=== PATIENT | male | born 1960 | race Caucasian/White ===

== ENCOUNTER 2017-11-02 12:03 | Outpatient (CLI) | payer MEDICARE, MEDICAID | END 2017-11-02 12:04 | disposition home or self-care (01) | LOC: BICMRI 12:03 | PROVIDERS: ATTEND Family Medicine | DX: M47.26 Other spondylosis with radiculopathy, lumbar region (principal); M51.16 Intervertebral disc disorders with radiculopathy, lumbar region; M48.061 Spinal stenosis, lumbar region without neurogenic claudication; N28.1 Cyst of kidney, acquired | CPT/HCPCS: 72158 ==

== ENCOUNTER 2018-05-22 23:43 | Observation (INO) | payer MEDICARE, MEDICAID ==
[2018-05-23] MEDS ORDERED: Fentanyl 100 MCG/2 ML VIAL ONE (00:13)
[2018-05-23 01:01] LABS: Troponin I Less than 0.010 ng/mL (< 0.028)
[2018-05-23] MEDS ORDERED: Ondansetron ODT 4 MG TAB ONE (01:05)
[2018-05-23] MEDS ORDERED: Promethazine HCl 25 MG/ML VIAL ONE (01:36)
[2018-05-23 02:34] VITALS: BMI 27.6
[2018-05-23 03:26] LABS: Cardiac Risk 2.4 (Less than 4.5)
[2018-05-23 03:29] LABS: Troponin I Less than 0.010 ng/mL (< 0.028)
[2018-05-23] MEDS ORDERED: Acetaminophen 325 MG TAB PO PRN (03:49)
[2018-05-23] MEDS ORDERED: Nitroglycerin 2% Ointment 1 INCH/1 GM Packet TOP SCH (06:00)
[2018-05-23] MEDS ORDERED: Ondansetron HCl/PF 4 MG/2 ML Vial IVP SCH (07:45)
[2018-05-23] MEDS ORDERED: Ondansetron ODT 4 MG TAB PO SCH (07:45)
[2018-05-23] MEDS ORDERED: Nitroglycerin 0.4 MG TAB (25 Tab Bottle) PO PRN (08:42)
[2018-05-23] MEDS ORDERED: Milk Of Magnesia 30 ML UDCUP PO PRN (08:42)
[2018-05-23] MEDS ORDERED: Senokot 8.6 MG TAB PO PRN (08:42)
[2018-05-23] MEDS ORDERED: Mag-Al 1200 mg/1200 mg/30 ML UDCUP PO PRN (08:42)
[2018-05-23] MEDS ORDERED: Loperamide HCl 2 MG CAP PO PRN (08:42)
[2018-05-23] MEDS ORDERED: Zolpidem Tartrate 5 MG TAB PO PRN (08:42)
[2018-05-23] MEDS ORDERED: Folic Acid 1 MG TAB PO SCH (09:00)
[2018-05-23] MEDS ORDERED: Multivitamin W/ Minerals 1 TAB PO SCH (09:00)
[2018-05-23] MEDS ORDERED: carBAMazepine 200 MG TAB PO SCH (09:00)
[2018-05-23] MEDS ORDERED: Lisinopril 20 MG TAB PO SCH (09:00)
[2018-05-23] MEDS ORDERED: Famotidine 20 MG TAB PO SCH (09:00)
[2018-05-23] MEDS ORDERED: Aspirin 325 MG TAB PO SCH ×2 (09:00)
[2018-05-23] MEDS: Gabapentin 300 MG CAP PO SCH ×2 (09:10→14:09)
[2018-05-23] MEDS: Diazepam 5 MG TAB PO SCH ×2 (09:10→14:09)
--- NOTE | 2018-05-23 11:24 | SS ---
PRIMARY CARE PHYSICIAN: Dr. Dino Jimenez. REASON FOR ADMISSION: Transfer from [facility] for chest pain. HISTORY OF PRESENT ILLNESS: A 57-year-old male who has history of epilepsy, who went to [facility] with the complaint of chest pain. Chest pain started yesterday around 4:00 p.m. which was left-sided in location, slight radiation to left shoulder, associated with nausea, diaphoresis, shortness of breath, and vomiting. He was feeling hot. His intensity of pain Initially 9/10 and subsequently reduced to 6/10. There was no specific aggravating or relieving factor. When he went to local [facility] , he had electrocardiogram which was unremarkable. They did routine blood tests including D-dimer, which were negative. Subsequently, this patient was sent to our Emergency Room. At [facility], the patient was given IV fluid, nitropatch, Zofran, nitroglycerin sublingual, and aspirin 324 mg. When I saw this patient in our hospital after emergency room transfer, he was not having any chest pain. His chest pain was completely subsided. He denies any UTI symptoms. He denies any headache. He denies any constipation, diarrhea , melena, hematochezia. As he has not had any breakfast, he was feeling nausea and that is why Zofran was given. He denies any focal motor symptoms. PAST MEDICAL HISTORY: Epilepsy/seizure disorder, chronic low back pain, hypertension. PAST SURGICAL HISTORY: Broken jaw as a child, cholecystectomy, hemorrhoid surgery, back surgery. PAST PSYCHIATRIC HISTORY: Anxiety and depression. SOCIAL HISTORY: The patient is a former smoker. He quit smoking about 6 years ago. He drinks 4-5 beer on a daily basis. He denies any other illicit drug abuse. He lives in [place] with his friend. FAMILY HISTORY: No strong family history of coronary artery disease or cancer, but father had a stroke. ALLERGIES: TYLENOL gives hives and nausea. CURRENT HOME MEDICATIONS: Tegretol 400 mg p.o. b.i.d., diazepam 5 mg p.o. t.i.d., folic acid 1 mg p.o. daily, gabapentin 300 mg t.i.d., lisinopril 20 mg p.o. daily, multivitamin 1 tablet p.o. daily. EMERGENCY ROOM COURSE: The patient was given IV fluid, nitroglycerin patch, nitroglycerin sublingual, Zofran 4 mg. Patient was given Phenergan, Zofran and fentanyl 100 mcg and IV fluid in our emergency room. REVIEW OF SYSTEMS: The following complete review of systems was negative, unless otherwise mentioned in the HPI or below: Constitutional: Weight loss or gain, ability to conduct usual activities. Skin: Rash, itching. Eyes: Double vision, pain. ENT/Mouth: Nose bleeding, neck stiffness, pain, tenderness. Cardiovascular: Palpitations, dyspnea on exertion, orthopnea. Respiratory: Shortness of breath, wheezing, cough, hemoptysis, fever or night sweats. Gastrointestinal: Poor appetite, abdominal pain, heartburn, nausea, vomiting, constipation, or diarrhea. Genitourinary: Urgency, frequency, dysuria, nocturia. Musculoskeletal: Pain, swelling. Neurologic/Psychiatric: Anxiety, depression. Allergy/Immunologic: Skin rash, bleeding tendency. Please see my HPI for pertinent positive and negative. All other review of systems reviewed and negative except as mentioned in the HPI. PHYSICAL EXAMINATION: VITAL SIGNS: On arrival, blood pressure 110/63, pulse 71, respiratory rate 16, temperature 98.9, saturation 99% on room air, and weight 86.1 kilograms. GENERAL: The patient is currently alert, awake, no obvious acute distress. HEAD: Normocephalic, atraumatic. EYES: Pupils round and reactive to light. Extraocular muscle intact. Facial plethora noted. NECK: Supple, no JVD, no thyromegaly, no carotid bruit. LUNGS: Clear to auscultation without any rhonchi or rales. Air entry normal. CARDIAC: S1, S2 regular. No murmur, no gallop, no rub. ABDOMEN: Soft, bowel sounds present, nontender, nondistended. No organomegaly , no mass, no suprapubic tenderness. BACK: Unremarkable. No CVA tenderness, no point tenderness. EXTREMITIES: Upper extremity, passive movement of all joints are normal. Lower extremity, no edema. Good peripheral pulsation, no calf tenderness. SKIN: No skin rash. HEMATOLOGIC: No lymphadenopathy. PSYCHIATRIC: Normal affect. NEUROLOGIC: Nonfocal examination. No cerebellar signs. Motor and sensation within normal limits. SIGNIFICANT LABORATORY DATA: EKG showing normal sinus rhythm, nonspecific ST-T changes. CBC: WBC 4.6, hemoglobin 14.3, platelet 176. D-dimer less than 0.27. BMP: Sodium 134, potassium 3.9, chloride 101, carbon dioxide 20, anion gap 17, BUN 11 , creatinine 1.0, glucose 85, calcium 9.3. LFT: AST 37, ALT 54, alkaline phosphatase 81, albumin 4.4, CK 153. Cardiac enzymes negative x3. BNP less than 10. Lipase 27, LDL 107, triglyceride 213, HDL 90. Chest x-ray based on my review, no acute cardiopulmonary process. ASSESSMENT AND PLAN: 1. Chest pain. Patient's chest pain description is left-sided, slight radiation to left shoulder. He has negative EKG, negative chest x-ray and negative D-dimer. In this way, we have excluded thromboembolic disorder, pneumonia. He does not have any reproducible pain, so costochondritis less likely. He has alcohol abuse history, so I am suspecting probably related his symptoms with gastroesophageal reflux disease. He never had any workup for cardiac and that is why we have observed him on telemetry floor and we did serial cardiac enzymes and ruled out acute coronary syndrome. For benefit of doubt, we are doing stress test today and if stress test is negative, then we will consider discharging him home. We provided healthy lifestyle measure discussion. We will prescribe Pepcid upon discharge. Once stress test is negative, then we will consider discharging him home. 2. Epilepsy/seizure disorder. Continue Tegretol 400 mg p.o. b.i.d., gabapentin 300 mg p.o. t.i.d. 3. Anxiety/depression. Continue diazepam 5 mg p.o. t.i.d. 4. Hypertension. I advised the patient to monitor blood pressure at home and take only if blood pressure is above normal limit. He will resume his lisinopril 20 mg p.o. daily. 5. Alcohol abuse. He will continue folic acid, multivitamin, and I counseled to avoid alcohol abuse. He will also continue B12 1000 mcg p.o. daily. 6. Chronic low back pain. I advised him to avoid NSAIDs. Continue gabapentin as well, that will help. 7. Deep venous thrombosis prophylaxis not needed because we are expecting discharge in 24 hours. 8. Gastrointestinal prophylaxis, Pepcid 20 mg p.o. b.i.d. 9. Code status: The patient is FULL CODE. The patient is making decision by himself. Disposition plan based on stress test result, likely today. DATE OF ADMISSION: 05/23/2018 at midnight. DATE OF DISCHARGE: 05/23/2018. DISCHARGE DISPOSITION: Home. PRIMARY DISCHARGE DIAGNOSIS: Chest pain, ruled out acute coronary syndrome. SECONDARY DISCHARGE DIAGNOSIS: Chest pain, ruled out acute coronary syndrome, likely due to gastroesophageal reflux disease. SECONDARY DISCHARGE DIAGNOSES: Alcohol abuse, anxiety, and depression, hypertension, seizure disorder. PRIMARY PROCEDURES/OPERATIONS: None. RADIOLOGICAL INVESTIGATION: Stress test result is negative Chest x-ray normal. SIGNIFICANT LABORATORY DATA: Please see my laboratory finding above. DISCHARGE MEDICATIONS: Folic acid 1 mg p.o. daily, vitamin B12 1000 mcg p.o. daily, Pepcid 20 mg p.o. b.i.d., Tegretol 400 mg p.o. b.i.d., diazepam 5 mg p.o. t.i.d., gabapentin 300 mg p.o. t.i.d., multivitamin 1 tablet p.o. daily, lisinopril 20 mg p.o. daily. CONTRAINDICATIONS: None. CODE STATUS: FULL CODE. INPATIENT NURSE RECEPTIONIST: None. ALLERGIES: TYLENOL. DISCHARGE PLAN: Post hospital, the patient will follow up with primary care physician. HOSPITAL COURSE: Please see my HPI for further details. The patient was admitted for chest pain. He went to [place] and he had negative workup there. He was given IV fluid and symptomatic treatment. He had negative D-dimer. Chest x-ray was normal. Cardiac enzymes are negative and EKG was normal. He underwent stress test and stress test result is pending by the time of dictation. If stress is negative, then we will consider discharging him home today. All new medication prescription sent to his pharmacy. STRESS TEST IS NEGATIVE The patient was admitted and discharged on the same day. [facility] CENTERMark
[2018-05-23] MEDS ORDERED: ADENOSINE 60 MG/20 ML VIAL ONE (13:28)
[2018-05-23 14:10] VITALS: BP 134/70; TEMP 98.5
--- NOTE | 2018-05-23 14:44 | NM ---
NUCLEAR MEDICINE CARDIAC PERFUSION EXAMINATION WITH EJECTION FRACTION: HISTORY: A 57-year-old male with chest pain and hypertension. TECHNIQUE: A single-day nuclear medicine cardiac perfusion examination was performed. Rest images were obtained using 9.4 mCi of Technetium 99m sestamibi. Stress images were obtained using 29.7 mCi of Technetium 99m sestamibi and adenosine. FINDINGS: Tomographic images showed no fixed or reversible perfusion defects. Gated images show normal wall mo tion with an ejection fraction of greater than 70%. EDV is 107 mL. LHR is 0.4. TID is 1.1. IMPRESSION: No evidence of ischemia. POS: [place]
== END 2018-05-23 16:17 | disposition home or self-care (01) ==
LOC: ERS 23:43 → 2SW 05-23 00:10
PROVIDERS: ADMIT Hospitalist; ATTEND Hospitalist
DX: R07.9 Chest pain, unspecified (principal); I10 Essential (primary) hypertension; F41.8 Other specified anxiety disorders; F10.10 Alcohol abuse, uncomplicated; M54.5 Low back pain; G40.909 Epilepsy, unspecified, not intractable, without status epilepticus; Z88.8 Allergy status to other drugs, medicaments and biological substances; Z87.891 Personal history of nicotine dependence; Z79.899 Other long term (current) drug therapy
CPT/HCPCS: 78452; 80061; 83880; 84484 ×2; 85379; 93005; 93017; 96361 ×2; 96365; 96366; 96375; 96376; 99285; A9500; G0378; 36415; 96374; J0153; J2405; J2550; J3010; Q0162

== ENCOUNTER 2019-06-05 18:51 | Observation (INO) | payer MEDICARE, MEDICAID ==
[~2019-06-05 18:51] MED LIST: ISOVUE-370 76%-LOCM 1 ML ONE
[2019-06-05 19:32] LABS: Bilirubin Negative (Negative); Blood, Urine Negative (Negative); Clarity Clear (Clear); Glucose, Urine (Dipstick) Normal (Negative); Leukocyte Negative Leu/uL (Negative); Nitrite Negative (Negative); Protein, Urine (Dipstick) Negative (Neg-Trace); Urobilinogen Normal mg/dL (Less than 2)
[2019-06-05 19:55] LABS: #Eosinphils 0.1 thou/uL (0.0-0.7); #Lymphocytes 1.5 thou/uL (1.20-3.40); #Monocytes 0.5 thou/uL (0.11-0.59); %Basophils 0.6 % (0.0-1.0); %Eosinophils 1.7 % (0.0-10.0); %Lymphocytes 28.9 % (21.0-51.0); %Monocytes 10.1 % (0.0-10.0); %Neutrophils 58.7 % (42.0-75.0); Hemoglobin 14.3 g/dL (14.0-18.0); Mean Corpuscular HGB CONC 35.4 g/dL (32.0-36.0); Mean Corpuscular Hemoglobin 35.2 pg (27.0-31.0); Mean Corpuscular Volume 99.4 fL (78.0-98.0); Mean Platelet Volume 6.5 fL (7.4-10.4); Platelet Count 201 thou/uL (130-400); RBC Distribution Width 10.9 % (11.5-14.5); Red Blood Cell (RBC) Count 4.06 mill/uL (4.70-6.10); White Blood Cell (WBC) Count 5.1 thou/uL (4.8-10.8)
[2019-06-05 20:10] LABS: ALT (SGPT) 27 U/L (8-55); AST (SGOT) 20 U/L (5-34); Albumin 4.3 g/dL (3.5-5.0); Alkaline Phosphatase 77 U/L (40-150); Anion Gap 14 mmol/L (10-20); BUN (Urea Nitrogen) 6 mg/dL (8.4-25.7); Bilirubin, Total 0.5 mg/dL (0.2-1.2); Calc. Creatinine Clearance 0 mL/min (70-130); Carbon Dioxide 19 mmol/L (22-29); Chloride 100 mmol/L (98-107); Estimated GFR-MDRD 82; Globulin 3.3 g/dL (2.4-3.5); Glucose 92 mg/dL (70-105); Lipase 15 U/L (8-78); Magnesium 2.2 mg/dL (1.6-2.6); Potassium 3.9 mmol/L (3.5-5.1); Protein, Total 7.6 g/dL (6.0-8.3); Sodium 129 mmol/L (136-145)
--- NOTE | 2019-06-05 20:53 | CT ---
EXAM: CT ABDOMEN AND PELVIS HISTORY: Left-sided abdominal pain. Nausea and vomiting. COMPARISON: 05/20/2019 Procedure: Multiple contiguous axial images were obtained and a CT of the abdomen and pelvis with IV contrast. C oronal reformats were performed. FINDINGS: Lower Chest: Chronic changes. Vessels: Normal caliber aorta Heart: Unremarkable Abdomen: Portal vein:Patent Gallbladder: Surgically absent Liver: within normal limits. Pancreas: Stable atrophy. Spleen: within normal limits. Adrenals: within normal limits. Kidneys: Stable parenchymal, exophytic hypodense masses. Symmetric enhancement. No obstructive uropat hy. Peritoneum: No ascites or free air, no fluid collection. Bowel: Limited evaluation by the lack of oral contrast. No evidence of small bowel obstruction. Ileoc ecal junction is normal. Normal caliber appendix. Scattered fecal material in a nondistended, nondilated colon. Stable anastomosis of the level of the rectum. Mesentery and Retroperitoneum: No enlarged mesenteric or retroperitoneal lymph nodes. Abdominal Wall: within normal limits. Pelvis: Reproductive Organs: No pelvic masses. Pelvis: within normal limits. Bladder: within normal limits. Bones: within normal limits. IMPRESSION: No evidence of acute intraabdominal\pelvic abnormality.
[2019-06-05] MEDS ORDERED: Morphine 4 MG/ML VIAL ONE (21:34)
[2019-06-05] MEDS ORDERED: Lorazepam 2 MG/ML VIAL ONE (23:08)
--- NOTE | 2019-06-06 00:01 | MRI ---
MRI lumbar spine noncontrast: HISTORY: Low back pain. Eval for cauda equina syndrome. Weakness. Decreased rectal tone. Urinary retention. COMPARISON: 05/24/2013 FINDINGS: Appropriate T1 marrow signal intensity of the lumbar vertebra. Vertebral body height is maintained. N o fracture. No significant STIR hyperintensity to suggest vertebral body edema or ligamentous injury Multiple T2 hyperintensities in the left or right renal cortex compatible with cortical cysts Symmetric signal intensity of the paraspinal muscles Conus medullaris terminates at the superior aspect of L1 T12-L1:Mild to moderate loss of disc space height. Central disc protrusion with a right subarticular component. Mild central canal stenosis. Moderate right and mild left neural foraminal narrowing. L1-L2:Disc hydration. Small right subarticular disc protrusion. Mass effect without obscuration the t raversing right L2 nerve root. Moderate right and mild left neural foraminal narrowing. L2-L3:Adequate disc hydration. Generalized disc bulge with a central disc protrusion with superior di sc extrusion. Narrowing of the right subarticular zone with mass effect and obscuration the traversing right L3 nerve root. Left subarticular zone is unremarkable. Overall there is mild to mode rate central canal stenosis. Mild bilateral neural foraminal narrowing L3-L4:Desiccation with mild to moderate loss of disc space height. Generalized disc bulge without sig nificant central canal stenosis. Moderate right and left neural foraminal narrowing. L4-L5:Adequate disc hydration. There is a central/left subarticular disc protrusion. Disc material ab uts but does not obscure the traversing left L5 nerve root. Overall mild central canal stenosis. Mild to moderate bilateral neural foraminal narrowing. L5-S1:Severe loss of disc space height. No significant central canal stenosis. Mild bilateral neural foraminal narrowing. IMPRESSION: 1. Degenerative changes lumbar spine as detailed above. There is narrowing of the right subarticular zone at L1-L2, L2-L3 and narrowing of the left subarticular zone at L4-L5. 2. No evidence of high-grade central canal stenosis. Mild to moderate central canal stenosis at L2-L3 . The degree of degenerative disc disease has progressed at L1-L2 and L2-L3. Degenerative changes at L3-L4 have improved. 3. Multilevel neural foraminal narrowing as detailed above.
[2019-06-06] MEDS ORDERED: Acetaminophen 325 MG TAB PO PRN (00:03)
[2019-06-06 00:12] VITALS: BMI 28.4
[2019-06-06] MEDS: Morphine 4 MG/ML VIAL SLOW IVP PRN ×3 (07:20→16:42)
[2019-06-06] MEDS: Ondansetron ODT 8 MG TAB PO SCH ×3 (07:20→21:01)
[2019-06-06] MEDS ORDERED: Lorazepam 2 MG/ML VIAL SLOW IVP PRN (09:32)
--- NOTE | 2019-06-06 10:44 | MRI ---
MRI THORACIC SPINE WITHOUT CONTRAST: Date: 06/06/19 INDICATION: History of spinal cord compression. COMPARISON: None. FINDINGS: There is multilevel disc degenerative disease in the thoracic spine. No bone marrow signal abnormalit y is grossly evident. No acute fracture is demonstrated. Visualized aspects of the retroperitoneum de monstrate some T2 hyperintense, T1 hypointense lesion extending exophytically off the superior pole o f the left kidney measuring 1.3 cm, suspicious for a cyst. Remaining visualized paravertebral soft ti ssues appear within normal limits. At T1-T2, there is no appreciable central canal or neural foraminal narrowing. At T2-T3, there is facet hypertrophy and mild disc degenerative disease inducing mild right neural fo raminal narrowing. At T3-4, there is moderate facet joint degenerative change and a broad based disc bulge, but no appre ciable central canal or neural foraminal narrowing. At T4-5, there is no appreciable central canal or neural foraminal narrowing. At T5-6, there is no appreciable central canal or neural foraminal narrowing. At T6-7, there is no appreciable central canal or neural foraminal narrowing. At T7-T8, there is no appreciable central canal or neural foraminal narrowing. At T8-T9, there is no appreciable central canal or neural foraminal narrowing. At T9-T10, there is no appreciable central canal or neural foraminal narrowing. At T10-T11, there is no appreciable central canal or neural foraminal narrowing. At T11-T12, there is no appreciable central canal or neural foraminal narrowing. At T12-L1, there is no appreciable central canal or neural foraminal narrowing. IMPRESSION: Mild multilevel disc degenerative disease of the thoracic spine with mild right neural foraminal narr owing at T2-T3 due to facet hypertrophy and disc degenerative disease. POS: [facility]
[2019-06-06] MEDS ORDERED: Acetaminophen/Codeine 30-300mg Tablet PO PRN (12:19)
[2019-06-06] MEDS: Cyclobenzaprine 10 MG TAB PO PRN ×2 (13:13→23:08)
[2019-06-06] MEDS: Gabapentin 300 MG CAP PO SCH ×2 (15:00→21:01)
[2019-06-06] MEDS ORDERED: Famotidine/PF 20 mg/2ml Vial SLOW IVP SCH ×2 (21:00)
[2019-06-06] MEDS ORDERED: Tamsulosin HCl 0.4 MG CAP PO SCH (21:00)
[2019-06-06] MEDS: Famotidine 20 MG TAB PO SCH (21:01)
[2019-06-06] MEDS: carBAMazepine 200 MG TAB PO SCH (21:01)
--- NOTE | 2019-06-06 21:35 | HP ---
CHIEF COMPLAINT: Back pain; also nausea, vomiting, diarrhea for the past week. HISTORY OF PRESENT ILLNESS: The patient is a 58-year-old male, who presents to the hospital with complaints of multiple complaints. The patient states that he has been having nausea, vomiting, and diarrhea for the past week on and off. The patient states that he has not been able to eat anything, however, stated that he was able to keep two beers down. The patient also states that he has been having significant lower back pain and has been having numbness especially to his left lower extremity. The patient states that he normally gets pain shots from Dr. Lopez. His next shot is due on the . The patient also states that he has been having significant amount of diarrhea. However, denies any fevers or chills. The patient states that for the past couple of days, he is unable to walk due to the pain and also weakness of his left lower extremity. The patient in the ER was found to have urinary retention, at which time Pan was placed. The patient states that he is continent of his stools. However, when he has diarrhea, it is uncontrollable, but his normal stools are controllable. PAST MEDICAL HISTORY: As of the following, he has a history: 1. Epilepsy seizure. 2. Chronic lower back pain. 3. Hypertension. PAST SURGICAL HISTORY: He has had a broken jaw as a child, cholecystectomy, hemorrhoid surgery and back . SOCIAL HISTORY: He is a former smoker. He drinks about 4 or 5 beers a day. He quit about six years ago. Denies any drug use, and he lives in [place] with his friend. FAMILY HISTORY: No history of heart disease, cancer, or stroke. ALLERGIES: HE IS ALLERGIC TO TYLENOL, GIVES HIM NAUSEA AND HIVES. MEDICATIONS: He takes; 1. Tegretol 400 mg b.i.d. 2. Diazepam 5 mg p.o. t.i.d. 3. Folic acid one p.o. daily. 4. Gabapentin 300 mg t.i.d. 5. Lisinopril 20 mg daily. 6. Multivitamin one p.o. daily. 7. Thiamine 100 mg daily. REVIEW OF SYSTEMS: All negative except for the ones mentioned above in the HPI. PHYSICAL EXAMINATION: VITAL SIGNS: As of the following; temperature of 97.4, heart rate 76, respirations 20, 100% on room air, blood pressure 132/86. GENERAL: He is awake, alert, and oriented x3. Does not appear in any distress. HEENT: Normocephalic, atraumatic. No lymphadenopathy noted. Pupils are equal and reactive to light. CV: S1 and S2 present. No murmurs, rubs, or gallops. LUNGS: Clear to auscultation. No rhonchi or wheezes noted. ABDOMEN: Soft. Bowel sounds are present x2. Mild pain upon palpation around his epigastric area. EXTREMITIES: He got pedal pulses present x2. The patient is an able to move both extremities, however, does have pain on moving his left lower extremity. According to him, pain sensation is dull to the left compared to the right. NEUROLOGIC: Neurovascular [place]; he does have some weakness to the left lower extremity. SKIN: No cuts, lesions , or bruises noted. LABORATORY RESULTS: As of the following; WBCs of 5.1, hemoglobin of 14.3, hematocrit of 40.4, platelets of 201. Chemistry; sodium of 129, potassium of 3.9, BUN of 6, creatinine of 0.94. Lactic acid of 1.3. Serum osmolality is 285. Troponin x3 were negative. Lipase was 15. The patient did have a CT abdomen and pelvis, which indicated no acute intra-abdominal issues. The patient also had a lumbar cervical spine and a thoracic MRI. The thoracic MRI indicated multilevel degenerative disease and he also had a lumbar spine MRI, which did indicate [id number] central canal stenosis at L2-L3, however, no evidence of high-grade central canal stenosis. ASSESSMENT AND PLAN: The patient is a 58-year-old male, who presents to the hospital with significant amount of nausea, vomiting, diarrhea, back pain, and lower extremity pain. 1. Nausea, vomiting, diarrhea. His lipase is normal. I will check stool studies if he has any more diarrhea. The patient is a drinker. I will put him on a PPI and also put him on alcohol withdrawal precaution. His CT abdomen and pelvis did not indicate any acute abnormalities. We will continue to monitor. 2. Lower back pain and pain to his left lower extremity. He was evaluated by Neurosurgery, who did not seem that this patient require any urgent surgery. I will put the patient on a muscle relaxant and also some pain medications, and we will continue to monitor. I will also give the patient's physical therapy. 3. History of seizures. We will continue his home medications. 4. Deep venous thrombosis prophylaxis. We will put the patient on subcu heparin. Job ID: [id number]
[2019-06-06] MEDS ORDERED: Diazepam 5 MG TAB PO SCH (23:00)
[2019-06-07 05:54] LABS: Band 2 % (5-11); Lymphocytes 37 % (21-51); MDiff Complete? YES; Mean Corpuscular HGB CONC 34.8 g/dL (32.0-36.0); Mean Corpuscular Hemoglobin 35.5 pg (27.0-31.0); Mean Platelet Volume 6.5 fL (7.4-10.4); Monocytes 5 % (0-10); Neutrophil 56 % (42-75); Platelet Count 165 thou/uL (130-400); RBC Distribution Width 10.9 % (11.5-14.5); Red Blood Cell (RBC) Count 3.67 mill/uL (4.70-6.10); White Blood Cell (WBC) Count 5.2 thou/uL (4.8-10.8)
[2019-06-07 05:56] LABS: ALT (SGPT) 34 U/L (8-55); AST (SGOT) 28 U/L (5-34); Albumin 3.9 g/dL (3.5-5.0); Alkaline Phosphatase 71 U/L (40-150); Anion Gap 12 mmol/L (10-20); BUN (Urea Nitrogen) 6 mg/dL (8.4-25.7); Bilirubin, Total 0.7 mg/dL (0.2-1.2); Calc. Creatinine Clearance 85 mL/min (70-130); Calcium 9.3 mg/dL (7.8-10.44); Carbon Dioxide 24 mmol/L (22-29); Chloride 105 mmol/L (98-107); Estimated GFR-MDRD 69; Glucose 95 mg/dL (70-105); Protein, Total 6.9 g/dL (6.0-8.3); Sodium 137 mmol/L (136-145)
[2019-06-07] MEDS: Morphine 4 MG/ML VIAL SLOW IVP PRN (07:16)
[2019-06-07 07:21] VITALS: TEMP 98.8
[2019-06-07] MEDS ORDERED: Folic Acid 1 MG TAB PO SCH (09:00)
[2019-06-07] MEDS ORDERED: Lisinopril 10 MG TAB PO SCH (09:00)
[2019-06-07] MEDS ORDERED: Cyanocobalamin (Vitamin B-12) 1,000 MCG TAB PO SCH (09:00)
[2019-06-07] MEDS ORDERED: Multivitamin W/ Minerals 1 TAB PO SCH (09:00)
[2019-06-07] MEDS ORDERED: Diazepam 5 MG TAB PO SCH (09:00)
[2019-06-07] MEDS: Ondansetron ODT 8 MG TAB PO SCH (09:08)
[2019-06-07] MEDS: Famotidine 20 MG TAB PO SCH (09:09)
[2019-06-07] MEDS: carBAMazepine 200 MG TAB PO SCH (09:09)
[2019-06-07] MEDS: Gabapentin 300 MG CAP PO SCH ×2 (09:09→09:13)
--- NOTE | 2019-06-07 09:17 | CON ---
DATE OF CONSULTATION: 06/06/2019 This encounter took place on June 06, 2019 at 5:45 a.m. HISTORY OF PRESENT ILLNESS: Mr. Doe is a 58-year-old man, who was admitted overnight for a multiplicity of diagnoses most significant being intractable nausea with vomiting, abdominal pain, and then associated with this or perhaps just coincidentally associated he has significant lower back pain, which he has had for many years. Neurosurgery was consulted overnight for concerns for cauda equina syndrome. This patient developed urinary retention that was new to him today. MRI performed emergently of the lumbar spine revealed no significantly concerning pathology, most significant though with L2-3 and L3-4 where he has the most moderate central canal stenosis, but nothing that would explain cauda equina like symptoms. At bedside this morning, he is awake and alert, although extraordinarily nauseated and starts to vomit during the course of our exam, so my examination is unfortunately limited. Then most significant pain he has is in the left lower back and groin, particularly with movement of the left lower extremity. This could represent any number of concerns up to lumbar radiculopathy, but could also be psoas muscle irritation. He does have some tingling and numbness to that lower extremity. The numbness that he reports is poly-dermatomal in nature, but does go down to around the godoy and ankle. He does have good strength in that leg distally with plantar flexion and dorsiflexion. However, when he attempts to raise his leg off the bed, his pain becomes severe in nature. Reflexes are intact to the bilateral lower extremities. From Neurosurgery's perspective, there is nothing that is emergently surgical represented on the lumbar spine. Please update this note also to include review of the thoracic spine, imaging yesterday afternoon, which shows really no significant pathology of any kind. Again, there is no surgical pathology present that needs to be addressed while he is in the hospital. If his pain is intractable and unresponsive to our typical pain regimens, could certainly consult Pain Management for evaluation of possible injection in the lumbar spine. Otherwise, Neurosurgery will plan to follow up in the outpatient setting. Job ID: [id number]
[2019-06-07 11:26] VITALS: BP 146/83
--- NOTE | 2019-06-08 01:25 | DIS ---
DATE OF ADMISSION: 06/05/2019 DATE OF DISCHARGE: 06/07/2019 DISCHARGE DIAGNOSES: As of the following; 1. Nausea and vomiting. 2. Abdominal pain. 3. Lower back pain with pain radiating to his left lower leg. HOSPITAL COURSE: The patient is a 58-year-old male, who initially presented to the hospital with complaints of nausea and vomiting on and off for the past week and also lower back pain radiating down his left leg, which is also chronic. The patient normally sees Dr. Lopez and gets shots. However, he stated that his next shot is due on June 09. The patient states that he has been having significant nausea and vomiting on and off for the past week. He also has a history of alcohol abuse. He did have a CT of abdomen and pelvis, which was unremarkable. He only had exophytic masses on his kidney. Otherwise, no other abnormalities were noted and this was mentioned to the patient. The patient also had a lumbar spine and a thoracic spine MRI and was evaluated by Neurosurgery. Initially, the thoughts were possible cauda equina syndrome. However, Neurosurgery ruled that out. His lumbar MRI indicated that he does have L2-L3 [id number] central canal stenosis; however, no evidence of high-grade central canal stenosis was noted. He does have multiple neural foraminal narrowing. He also had a thoracic spine MRI which indicated multilevel disk degenerative disease of the thoracic spine and mild right neuroforaminal narrowing. The patient also had a Pan catheter which was inserted in the ER. We were able to discontinue the Pan catheter and the patient was able to urinate without any issues. I did put him on Flexeril and Tylenol No. 3. However, the patient is allergic to Tylenol. The patient also was seen by Physical Therapy. He was able to ambulate. From Neurosurgical Services, there was no acute intervention, and therefore the patient's pain improved. He was able to tolerate his food and he was discharged home. I did emphasize that the patient not to drink while he is on medications and also not to drink which could also contribute to his nausea and vomiting. The patient is on Valium 5 mg t.i.d. and he has been on it for quite a long time. I did not want to stop it and start Flexeril, instead I decreased it to 5 mg b.i.d. I did tell the patient that he needs to follow up with his primary and maybe taper the Valium down since this is not really helping him, which most likely is for muscle spasms also and the patient needs to continue maybe Flexeril. I have prescribed him some Flexeril in the meantime. PHYSICAL EXAMINATION: VITAL SIGNS: 98.8, 90, 16, 98% on room air, 159/80. GENERAL: He is awake, alert, and oriented x3. Does not appear in distress. CV: S1 and S2, present. No murmurs, rubs, or gallops. ABDOMEN: Soft and nontender. Bowel sounds are present x2. HOME MEDICATIONS: 1. Carbamazepine 400 mg b.i.d. 2. Diazepam 5 mg b.i.d. 3. Flexeril 10 mg t.i.d. p.r.n. 4. Gabapentin 300 mg t.i.d. 5. Pepcid 20 mg b.i.d. 6. Folic acid 1 mg p.o. b.i.d. 7. Lisinopril 20 mg p.o. daily. He will be discharged home. He will follow up with primary care and also [facility] as needed. Job ID: [id number]
== END 2019-06-07 13:29 | disposition home health service (06) ==
LOC: ERS 18:51 → 2SW 22:25
PROVIDERS: ADMIT Internal Medicine; ATTEND Internal Medicine
DX: M51.26 Other intervertebral disc displacement, lumbar region (principal); M48.061 Spinal stenosis, lumbar region without neurogenic claudication; M48.07 Spinal stenosis, lumbosacral region; M51.34 Other intervertebral disc degeneration, thoracic region; M48.04 Spinal stenosis, thoracic region; M48.05 Spinal stenosis, thoracolumbar region; R11.2 Nausea with vomiting, unspecified; R10.9 Unspecified abdominal pain; R19.7 Diarrhea, unspecified; G89.29 Other chronic pain; I10 Essential (primary) hypertension; G40.909 Epilepsy, unspecified, not intractable, without status epilepticus; F32.9 Major depressive disorder, single episode, unspecified; Z87.891 Personal history of nicotine dependence; Z88.6 Allergy status to analgesic agent; Z79.899 Other long term (current) drug therapy
CPT/HCPCS: 51702; 72146; 72148; 74177; 80053 ×2; 81003; 83605; 83690; 83735; 83930; 83935; 84300; 84484; 85007; 85025; 85027; 85652; 86140; 86850; 86900; 86901; 93005; 96361; 96374; 96375; 96376 ×2; 97116; 97139; 99285; G0378 ×2; 36415; J2060; J2270; Q9966

== ENCOUNTER 2019-11-11 10:45 | Inpatient (IN) | payer MEDICARE, MEDICAID ==
[2019-11-11] MEDS ORDERED: metroNIDAZOLE 500 MG/100 ML BAG ONE (11:49)
[2019-11-11] MEDS ORDERED: Cyclobenzaprine 10 MG TAB PO PRN (12:30)
[2019-11-11] MEDS ORDERED: Bisacodyl 10 MG SUPP PR PRN (12:30)
[2019-11-11] MEDS ORDERED: Senokot S 8.6-50 MG TAB PO PRN (12:30)
[2019-11-11] MEDS ORDERED: Guaifenesin DM 100-10/5 ML UDCUP PO PRN (12:30)
[2019-11-11] MEDS ORDERED: Morphine 2 MG/ML SYRINGE ONE (13:32)
[2019-11-11] MEDS ORDERED: Ondansetron PF 4 MG/2 ML Vial ONE (13:32)
[2019-11-11] MEDS: Lactated Ringer's 1,000 ML IV SCH ×2 (13:34→20:48)
[2019-11-11] MEDS: Morphine 2 MG/ML SYRINGE SLOW IVP PRN ×2 (13:35→17:45)
[2019-11-11] MEDS: Ondansetron PF 4 MG/2 ML Vial IVP PRN (13:36)
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
[2019-11-11 14:44] VITALS: BMI 28.0
[2019-11-11] MEDS: Gabapentin 300 MG CAP PO SCH (20:36)
[2019-11-11] MEDS: carBAMazepine 200 MG TAB PO SCH (20:36)
[2019-11-11] MEDS: Diazepam 5 MG TAB PO SCH (20:37)
[2019-11-11] MEDS: Famotidine 20 MG TAB PO SCH (20:37)
[2019-11-11] MEDS: metroNIDAZOLE 500 MG in Premix Bag 1 BAG IVPB SCH (21:22)
--- NOTE | 2019-11-11 23:51 | CON ---
DATE OF CONSULTATION: CHIEF COMPLAINT: Abdominal pain. HISTORY OF PRESENT ILLNESS: Mr. Doe is a 58-year-old man who presented to the emergency room with abdominal pain since yesterday. He states that the pain is in his lower abdomen has not moved since its onset. It does hurt to take a deep breath or move around. He initially thought it might be a kidney stone since he has had those in the past, but this pain was not getting any better, so he came to his local emergency room where a CT was diagnostic of diverticulitis. He has no previous history of diverticulitis and denies any history of constipation, although he does have a history of hemorrhoids. He states that he had a colonoscopy 4 or 5 years ago, which did not show any significant abnormalities. He has had nausea and vomiting yesterday when he tried to eat, but has not really eaten since then due to lack of appetite. He denies any fevers or chills. The pain has not gotten any worse, but has persisted and is about a 5-6/10 on a 0-10 scale. No exacerbating or relieving factors. He had a normal bowel movement yesterday morning. No diarrhea. No history of melena. PAST MEDICAL HISTORY: Hypertension, hyperlipidemia, and major depression. PAST SURGICAL HISTORY: Back surgeries, laparoscopic cholecystectomy, hemorrhoid surgery many years ago and epilepsy, which is well controlled. OUTPATIENT MEDICATIONS: Include: 1. Carbamazepine. 2. Lisinopril. 3. Diazepam. 4. Gabapentin. ALLERGIES: HE REPORTS AN ADVERSE DRUG REACTION TO TYLENOL, WHICH MAKES HIM SICK TO HIS STOMACH. SOCIAL HISTORY: He is a former smoker, but quit at least 8 years ago. He drinks occasionally but not to excess and does not have any history of drug abuse. FAMILY HISTORY: Heart disease. REVIEW OF SYSTEMS: Ten system review of systems is negative except per HPI. PHYSICAL EXAMINATION: VITAL SIGNS: Temperature 97.9, heart rate 91, respirations 18, 96% saturations on room air, blood pressure 110/76. GENERAL: Reveals a healthy-appearing man, in no acute distress. He is not flushed or toxic in appearance. He is not jaundiced or icteric. HEENT: Unremarkable. NECK: Supple without lymphadenopathy or thyroid nodules. HEART: Regular in its rate and rhythm without murmurs, rubs, or gallops. LUNGS: Clear to auscultation bilaterally. ABDOMEN: Soft and nondistended. He has healed laparoscopic incisions in the upper abdomen. No palpable masses or hernias. He is moderately tender to palpation in the lower abdomen, but does not exhibit rigidity rebound or guarding. He is nontender to palpation in the upper abdomen. EXTREMITIES: Warm and well perfused with normal pedal pulses. NEUROLOGIC: No focal deficits. PSYCHIATRIC: Alert, oriented and appropriate. LABORATORY DATA: White count is elevated at 13, with a left shift of 81% neutrophils. Bilirubin is slightly elevated at 1.3, but other electrolytes and LFTs are normal. Urine showed trace ketones and a small amount of protein, but was otherwise unremarkable. CT images are reviewed and I agree with the written report. The patient has a short segment of inflamed sigmoid colon with a tiny bubble of air in the mesentery. No free air or free fluid. No abscess formation. ASSESSMENT: Acute diverticulitis, admitted to the medical service for conservative management with IV antibiotics. He is on a clear liquid diet and we will monitor his response to antibiotics. No acute indication for surgical intervention. The patient's diagnosis and treatment plan were discussed in detail with him and he understands, agrees with this plan. If he has worsening of his symptoms, he was instructed to ask his nurse to call me to evaluate him. Thanks very much. Job ID: [id number]
[2019-11-12] MEDS: metroNIDAZOLE 500 MG in Premix Bag 1 BAG IVPB SCH ×3 (05:30→21:59)
[2019-11-12] MEDS: Morphine 2 MG/ML SYRINGE SLOW IVP PRN ×3 (05:41→18:45)
[2019-11-12 08:23] LABS: #Eosinphils 0.2 thou/uL (0.0-0.7); #Lymphocytes 1.5 thou/uL (1.20-3.40); #Monocytes 0.8 thou/uL (0.11-0.59); #Neutrophils 6.2 thou/uL (1.40-6.50); %Basophils 0.5 % (0.0-1.0); %Eosinophils 2.5 % (0.0-10.0); %Lymphocytes 16.8 % (21.0-51.0); %Monocytes 9.3 % (0.0-10.0); %Neutrophils 70.9 % (42.0-75.0); Hemoglobin 12.2 g/dL (14.0-18.0); Mean Corpuscular HGB CONC 35.3 g/dL (32.0-36.0); Mean Corpuscular Hemoglobin 34.1 pg (27.0-31.0); Mean Corpuscular Volume 96.6 fL (78.0-98.0); Mean Platelet Volume 7.2 fL (7.4-10.4); Platelet Count 145 thou/uL (130-400); RBC Distribution Width 10.8 % (11.5-14.5); Red Blood Cell (RBC) Count 3.57 mill/uL (4.70-6.10); White Blood Cell (WBC) Count 8.7 thou/uL (4.8-10.8)
[2019-11-12] MEDS: Enoxaparin Sodium 40 MG/0.4 ML SYRINGE SC SCH (08:23)
[2019-11-12] MEDS: Lisinopril 20 MG TAB PO SCH (08:23)
[2019-11-12] MEDS: Famotidine 20 MG TAB PO SCH ×2 (08:24→20:22)
[2019-11-12] MEDS: carBAMazepine 200 MG TAB PO SCH ×2 (08:24→20:21)
[2019-11-12] MEDS: Cyanocobalamin (Vitamin B-12) 1,000 MCG TAB PO SCH (08:25)
[2019-11-12] MEDS: Lactated Ringer's 1,000 ML IV SCH ×2 (08:25→18:11)
[2019-11-12] MEDS: Multivitamin W/ Minerals 1 TAB PO SCH (08:25)
[2019-11-12] MEDS: Diazepam 5 MG TAB PO SCH ×2 (08:25→20:33)
[2019-11-12] MEDS: Folic Acid 1 MG TAB PO SCH (08:27)
[2019-11-12 08:40] LABS: Anion Gap 10 mmol/L (10-20); BUN (Urea Nitrogen) 11 mg/dL (8.4-25.7); Calc. Creatinine Clearance 108 mL/min (70-130); Calcium 8.7 mg/dL (7.8-10.44); Carbon Dioxide 24 mmol/L (22-29); Chloride 104 mmol/L (98-107); Estimated GFR-MDRD 86; Glucose 90 mg/dL (70-105); Sodium 134 mmol/L (136-145)
[2019-11-12] MEDS ORDERED: Polyethylene Glycol 3350 17 GM Packet PO PRN ×2 (11:20→11:40)
[2019-11-12] MEDS ORDERED: Polyethylene Glycol 3350 17 GM Packet PO SCH ×2 (11:30→11:45)
[2019-11-12] MEDS: Ondansetron PF 4 MG/2 ML Vial IVP PRN (14:08)
--- NOTE | 2019-11-12 14:58 | PDOC.GSPN ---
Surgery Progress Note: Subj - Subjective Narrative: Patient's states that his pain is a little better today. He is still hurting in the lower abdomen. No nausea but little appetite. His main complaint today is feeling weak. Surgery Progress Note: Obj - Vital signs Vital signs: Vital Signs - Most Recent Temp Pulse Resp BP Pulse Ox 99.2 F 81 16 99/65 95 11/12/19 08:00 11/12/19 08:00 11/12/19 08:00 11/12/19 08:00 11/12/19 08:00 - Physical Exam General: no distress Abdomen: soft, nondistended, positive bowel sounds (bottom turning lathe tender to palpation in bilateral lower quadrants, about the same as yesterday, no rigidity rebound or guarding) Surgery Progress Note: Results - Labs Result Diagrams: 11/12/19 07:40 11/12/19 07:40 Lab results: Laboratory Results - last 24 hr 11/12/19 11/12/19 07:40 07:40 WBC 8.7 RBC 3.57 L Hgb 12.2 L Hct 34.5 L MCV 96.6 MCH 34.1 H MCHC 35.3 RDW 10.8 L Plt Count 145 MPV 7.2 L Neutrophils % 70.9 Lymphocytes % 16.8 L Monocytes % 9.3 Eosinophils % 2.5 Basophils % 0.5 Neutrophils # 6.2 Lymphocytes # 1.5 Monocytes # 0.8 H Eosinophils # 0.2 Basophils # 0.0 Sodium 134 L Potassium 4.0 Chloride 104 Carbon Dioxide 24 Anion Gap 10 BUN 11 Creatinine 0.90 Estimated GFR (MDRD) 86 Glucose 90 Calcium 8.7 Surgery Progress Note: A/P - Problem (1) Diverticulitis large intestine Current Visit: Yes Code(s): K57.32 - DVTRCLI OF LG INT W/O PERFORATION OR ABSCESS W/O BLEEDING Status: Acute Qualifiers: Diverticulitis bleeding: without bleeding Diverticulitis complication: with perforation and without abscess Qualified Code(s): K57.20 - Diverticulitis of large intestine with perforation and abscess without bleeding - Plan Plan: Patient is clinically stable with his diverticulitis on conservative medical management. Pain is slightly better and his white count has normalized. Exam is stable. He is tolerating clear liquid diet but still doesn't have much appetite. He is feeling weak which I think is from not eating for a few days. No current indication for surgery. We'll continue to follow.
[2019-11-12] MEDS: Gabapentin 300 MG CAP PO SCH (20:21)
--- NOTE | 2019-11-12 21:24 | PDOC.HOSPP ---
- Subjective Encounter Date: 11/12/19 Encounter Time: 09:22 Subjective: 58 y/o male with HTN, HLD and depression admitted with acute onset of bilateral lower abdominal pain associated with nausea. CT showed features of acute diverticulitis. Patient reported no BM in seveeral days. Abdominal pain is better. Tolerating clear liquid diet. - Objective Vital Signs & Weight: Vital Signs (12 hours) Temp Pulse Resp BP Pulse Ox 11/12/19 20:03 98.6 F 78 18 114/71 93 L Weight Weight 190 lb I&O: 11/11/19 11/12/19 11/13/19 06:59 06:59 06:59 Intake Total 1140 Balance 1140 Result Diagrams: 11/12/19 07:40 11/12/19 07:40 Hospitalist ROS - Medication Medications: Active Medications Generic Name Dose Route Start Last Admin Trade Name Freq PRN Reason Stop Dose Admin Carbamazepine 400 mg 11/11/19 21:00 11/12/19 20:21 Tegretol PO 400 mg BID AHSAN Administration Cyanocobalamin 1,000 mcg 11/12/19 09:00 11/12/19 08:25 Vitamin B-12 PO 1,000 mcg DAILY AHSAN Administration Diazepam 5 mg 11/11/19 21:00 11/12/19 20:33 Valium PO 5 mg BID AHSAN Administration Enoxaparin Sodium 40 mg 11/12/19 09:00 11/12/19 08:23 Lovenox SC 40 mg 0900 AHSAN Administration Famotidine 20 mg 11/11/19 21:00 11/12/19 20:22 Pepcid PO 20 mg BID AHSAN Administration Folic Acid 1 mg 11/12/19 09:00 11/12/19 08:27 Folvite PO 1 mg DAILY AHSAN Administration Gabapentin 300 mg 11/11/19 21:00 11/12/19 20:21 Neurontin PO 300 mg HS AHSAN Administration Ciprofloxacin/Dextrose 400 mg/ 200 mls @ 200 mls/hr 11/11/19 21:00 11/12/19 20:22 Device IVPB 200 mls Q12HR AHSAN Administration Lactated Ringer's 1,000 mls @ 100 mls/hr 11/11/19 12:30 11/12/19 18:11 Lactated Ringer's IV 1,000 mls .Q10H AHSAN Administration Metronidazole 500 mg/ Device 100 mls @ 100 mls/hr 11/11/19 22:00 11/12/19 20: 22 IVPB 100 mls Q8HR AHSAN Administration Iron/Minerals/Multivitamins 1 tab 11/12/19 09:00 11/12/19 08:25 Theragran M PO 1 tab DAILY AHSAN Administration Lisinopril 20 mg 11/12/19 09:00 11/12/19 08:23 Zestril PO 20 mg DAILY AHSAN Administration Morphine Sulfate 2 mg 11/11/19 12:30 11/12/19 18:45 Morphine SLOW IVP 2 mg Q4H PRN Administration Chest Pain/BP Elevations Ondansetron HCl 4 mg 11/11/19 12:30 11/12/19 14:08 Zofran IVP 4 mg Q6H PRN Administration Nausea/Vomiting - Exam General Appearance: awake alert Eye: anicteric sclera ENT: normocephalic atraumatic Neck: supple, symmetric Heart: RRR Respiratory: no wheezes, no rales, no ronchi, normal chest expansion Gastrointestinal: normal bowel sounds Gastrointestinal - other findings: full with moderate tenderness both lower quadrants Extremities: no edema Neurological: cranial nerve grossly intact, no focal deficits Psychiatric: A&O x 3 Hosp A/P (1) Abdominal pain Code(s): R10.9 - UNSPECIFIED ABDOMINAL PAIN Status: Acute (2) Diverticulitis large intestine Code(s): K57.32 - DVTRCLI OF LG INT W/O PERFORATION OR ABSCESS W/O BLEEDING Status: Acute Qualifiers: Diverticulitis bleeding: without bleeding Diverticulitis complication: with perforation and without abscess Qualified Code(s): K57.20 - Diverticulitis of large intestine with perforation and abscess without bleeding (3) Anxiety and depression Code(s): F41.9 - ANXIETY DISORDER, UNSPECIFIED; F32.9 - MAJOR DEPRESSIVE DISORDER, SINGLE EPISODE, UNSPECIFIED Status: Chronic (4) Hypertension Code(s): I10 - ESSENTIAL (PRIMARY) HYPERTENSION Status: Chronic (5) Hyponatremia Code(s): E87.1 - HYPO-OSMOLALITY AND HYPONATREMIA Status: Acute (6) Seizure disorder Code(s): G40.909 - EPILEPSY, UNSP, NOT INTRACTABLE, WITHOUT STATUS EPILEPTICUS Status: Chronic (7) Constipation Code(s): K59.00 - CONSTIPATION, UNSPECIFIED Status: Acute - Plan Continue IV antibiotic. Start miralax Analgesic as needed to continue. Continue crystalloid therapy
[2019-11-13] MEDS: Lactated Ringer's 1,000 ML IV SCH ×2 (05:04→12:53)
[2019-11-13] MEDS: metroNIDAZOLE 500 MG in Premix Bag 1 BAG IVPB SCH ×3 (05:58→21:43)
[2019-11-13 07:39] LABS: Albumin 3.6 g/dL (3.5-5.0); Anion Gap 13 mmol/L (10-20); BUN (Urea Nitrogen) 10 mg/dL (8.4-25.7); BUN/Creatinine Ratio 10.87; Calc. Creatinine Clearance 105 mL/min (70-130); Calcium 8.8 mg/dL (7.8-10.44); Carbon Dioxide 22 mmol/L (22-29); Chloride 103 mmol/L (98-107); Estimated GFR-MDRD 84; Glucose 88 mg/dL (70-105); Phosphorus 2.9 mg/dL (2.3-4.7); Potassium 3.9 mmol/L (3.5-5.1); Sodium 134 mmol/L (136-145)
[2019-11-13] MEDS: Famotidine 20 MG TAB PO SCH ×2 (08:04→20:09)
[2019-11-13] MEDS: Folic Acid 1 MG TAB PO SCH (08:04)
[2019-11-13] MEDS: Lisinopril 20 MG TAB PO SCH (08:04)
[2019-11-13] MEDS: Enoxaparin Sodium 40 MG/0.4 ML SYRINGE SC SCH (08:04)
[2019-11-13] MEDS: carBAMazepine 200 MG TAB PO SCH ×2 (08:04→20:08)
[2019-11-13] MEDS: Cyanocobalamin (Vitamin B-12) 1,000 MCG TAB PO SCH (08:05)
[2019-11-13] MEDS: Multivitamin W/ Minerals 1 TAB PO SCH (08:05)
[2019-11-13] MEDS: Diazepam 5 MG TAB PO SCH ×2 (08:05→20:09)
[2019-11-13] MEDS: Morphine 2 MG/ML SYRINGE SLOW IVP PRN ×2 (10:24→20:07)
--- NOTE | 2019-11-13 13:23 | PDOC.GSPN ---
Surgery Progress Note: Subj - Subjective Narrative: Patient is feeling a little better. He still feels weak but the abdominal pain is less. No nausea or vomiting. He is passing gas and had a bowel movement this morning. He still feels a little bloated. Surgery Progress Note: Obj - Vital signs Vital signs: Vital Signs - Most Recent Temp Pulse Resp BP Pulse Ox 98.1 F 70 17 108/70 92 L 11/13/19 11:25 11/13/19 11:25 11/13/19 11:25 11/13/19 11:25 11/13/19 11:25 - Physical Exam General: no distress Abdomen: soft, positive bowel sounds (Abdomen is slightly distended but only minimally tender to palpation left lower quadrant. The right lower quadrant tenderness has resolved.) Surgery Progress Note: Results - Labs Result Diagrams: 11/12/19 07:40 11/13/19 06:46 Lab results: Laboratory Results - last 24 hr 11/13/19 06:46 Sodium 134 L Potassium 3.9 Chloride 103 Carbon Dioxide 22 Anion Gap 13 BUN 10 Creatinine 0.92 Estimated GFR (MDRD) 84 BUN/Creatinine Ratio 10.87 Glucose 88 Calcium 8.8 Phosphorus 2.9 Albumin 3.6 Surgery Progress Note: A/P - Problem (1) Diverticulitis large intestine Current Visit: Yes Code(s): K57.32 - DVTRCLI OF LG INT W/O PERFORATION OR ABSCESS W/O BLEEDING Status: Acute Qualifiers: Diverticulitis bleeding: without bleeding Diverticulitis complication: with perforation and without abscess Qualified Code(s): K57.20 - Diverticulitis of large intestine with perforation and abscess without bleeding Assessment and Plan: Patient appears to be responding appropriately to IV antibiotics. He has tolerated clear liquids and is having bowel movements and passing gas. His nausea has resolved so we will try advancing his diet. I have ordered some protein supplements as well. No indication for surgical intervention at this time.
--- NOTE | 2019-11-13 13:47 | PDOC.HOSPP ---
- Subjective Encounter Date: 11/13/19 Encounter Time: 09:45 Subjective: 58 y/o male with HTN, HLD and depression admitted with acute onset of bilateral lower abdominal pain associated with nausea. CT showed features of acute diverticulitis. Abdominal pain is better. Tolerating clear liquid diet and having BM. No fever. - Objective Vital Signs & Weight: Vital Signs (12 hours) Temp Pulse Resp BP Pulse Ox 11/13/19 11:25 98.1 F 70 17 108/70 92 L 11/13/19 08:00 93 L 11/13/19 07:18 98.1 F 64 17 113/75 93 L Weight Weight 190 lb I&O: 11/12/19 11/13/19 11/14/19 06:59 06:59 06:59 Intake Total 3060 660 Balance 3060 660 Result Diagrams: 11/12/19 07:40 11/13/19 06:46 Hospitalist ROS - Medication Medications: Active Medications Generic Name Dose Route Start Last Admin Trade Name Freq PRN Reason Stop Dose Admin Carbamazepine 400 mg 11/11/19 21:00 11/13/19 08:04 Tegretol PO 400 mg BID AHSAN Administration Cyanocobalamin 1,000 mcg 11/12/19 09:00 11/13/19 08:05 Vitamin B-12 PO 1,000 mcg DAILY AHSAN Administration Diazepam 5 mg 11/11/19 21:00 11/13/19 08:05 Valium PO 5 mg BID AHSAN Administration Enoxaparin Sodium 40 mg 11/12/19 09:00 11/13/19 08:04 Lovenox SC 40 mg 0900 AHSAN Administration Famotidine 20 mg 11/11/19 21:00 11/13/19 08:04 Pepcid PO 20 mg BID AHSAN Administration Folic Acid 1 mg 11/12/19 09:00 11/13/19 08:04 Folvite PO 1 mg DAILY AHSAN Administration Gabapentin 300 mg 11/11/19 21:00 11/12/19 20:21 Neurontin PO 300 mg HS AHSAN Administration Ciprofloxacin/Dextrose 400 mg/ 200 mls @ 200 mls/hr 11/11/19 21:00 11/13/19 08:03 Device IVPB 200 mls Q12HR AHSAN Administration Lactated Ringer's 1,000 mls @ 100 mls/hr 11/11/19 12:30 11/13/19 12:53 Lactated Ringer's IV 1,000 mls .Q10H AHSAN Administration Metronidazole 500 mg/ Device 100 mls @ 100 mls/hr 11/11/19 22:00 11/13/19 05: 58 IVPB 100 mls Q8HR AHSAN Administration Iron/Minerals/Multivitamins 1 tab 11/12/19 09:00 11/13/19 08:05 Theragran M PO 1 tab DAILY AHSAN Administration Lisinopril 20 mg 11/12/19 09:00 11/13/19 08:04 Zestril PO 20 mg DAILY AHSAN Administration Morphine Sulfate 2 mg 11/11/19 12:30 11/13/19 10:24 Morphine SLOW IVP 2 mg Q4H PRN Administration Chest Pain/BP Elevations Ondansetron HCl 4 mg 11/11/19 12:30 11/12/19 14:08 Zofran IVP 4 mg Q6H PRN Administration Nausea/Vomiting - Exam General Appearance: awake alert Eye: anicteric sclera ENT: normocephalic atraumatic, moist mucosa Neck: supple, symmetric Heart: RRR Respiratory: no wheezes, no rales, no ronchi, normal chest expansion Gastrointestinal: soft, non-distended, normal bowel sounds, tender to palpation Extremities: no cyanosis Neurological: cranial nerve grossly intact, no focal deficits Psychiatric: A&O x 3 Hosp A/P (1) Diverticulitis large intestine Code(s): K57.32 - DVTRCLI OF LG INT W/O PERFORATION OR ABSCESS W/O BLEEDING Status: Acute Qualifiers: Diverticulitis bleeding: without bleeding Diverticulitis complication: with perforation and without abscess Qualified Code(s): K57.20 - Diverticulitis of large intestine with perforation and abscess without bleeding (2) Abdominal pain Code(s): R10.9 - UNSPECIFIED ABDOMINAL PAIN Status: Acute (3) Anxiety and depression Code(s): F41.9 - ANXIETY DISORDER, UNSPECIFIED; F32.9 - MAJOR DEPRESSIVE DISORDER, SINGLE EPISODE, UNSPECIFIED Status: Chronic (4) Hypertension Code(s): I10 - ESSENTIAL (PRIMARY) HYPERTENSION Status: Chronic (5) Hyponatremia Code(s): E87.1 - HYPO-OSMOLALITY AND HYPONATREMIA Status: Acute (6) Seizure disorder Code(s): G40.909 - EPILEPSY, UNSP, NOT INTRACTABLE, WITHOUT STATUS EPILEPTICUS Status: Chronic (7) Constipation Code(s): K59.00 - CONSTIPATION, UNSPECIFIED Status: Acute - Plan Continue IV antibiotic. Advance diet to regular Analgesic as needed Continue crystalloid therapy Possible discharge tomorrow Increase activity
[2019-11-13] MEDS: Gabapentin 300 MG CAP PO SCH (20:09)
[2019-11-14] MEDS: Lactated Ringer's 1,000 ML IV SCH ×3 (03:30→20:26)
[2019-11-14] MEDS: metroNIDAZOLE 500 MG in Premix Bag 1 BAG IVPB SCH ×3 (04:59→23:21)
[2019-11-14] MEDS ORDERED: traMADol HCl 50 MG TAB PO PRN ×2 (09:48)
[2019-11-14] MEDS ORDERED: Ketorolac Tromethamine 30 MG/ML VIAL IVP PRN (09:50)
[2019-11-14] MEDS: Lisinopril 20 MG TAB PO SCH (10:06)
[2019-11-14] MEDS: Famotidine 20 MG TAB PO SCH ×2 (10:06→20:25)
[2019-11-14] MEDS: carBAMazepine 200 MG TAB PO SCH ×2 (10:06→20:26)
[2019-11-14] MEDS: Cyanocobalamin (Vitamin B-12) 1,000 MCG TAB PO SCH (10:07)
[2019-11-14] MEDS: Multivitamin W/ Minerals 1 TAB PO SCH (10:07)
[2019-11-14] MEDS: Enoxaparin Sodium 40 MG/0.4 ML SYRINGE SC SCH (10:07)
[2019-11-14] MEDS: Diazepam 5 MG TAB PO SCH ×2 (10:07→20:25)
[2019-11-14] MEDS: Folic Acid 1 MG TAB PO SCH (10:07)
--- NOTE | 2019-11-14 13:43 | PDOC.HOSPP ---
- Subjective Encounter Date: 11/14/19 Encounter Time: 13:41 Subjective: abd pain, nausea improved - Objective Vital Signs & Weight: Vital Signs (12 hours) Temp Pulse Resp BP BP BP Pulse Ox 11/14/19 12:04 97.5 F L 77 18 108/71 93 L 11/14/19 10:06 129/83 11/14/19 09:00 93 L 11/14/19 07:51 98.3 F 70 18 129/78 93 L 11/14/19 03:56 98.3 F 77 19 118/74 92 L Weight Weight 190 lb I&O: 11/13/19 11/14/19 11/15/19 06:59 06:59 06:59 Intake Total 3060 2700 Output Total 1500 Balance 3060 1200 Result Diagrams: 11/12/19 07:40 11/13/19 06:46 Hospitalist ROS - Medication Medications: Active Medications Generic Name Dose Route Start Last Admin Trade Name Freq PRN Reason Stop Dose Admin Carbamazepine 400 mg 11/11/19 21:00 11/14/19 10:06 Tegretol PO 400 mg BID AHSAN Administration Cyanocobalamin 1,000 mcg 11/12/19 09:00 11/14/19 10:07 Vitamin B-12 PO 1,000 mcg DAILY AHSAN Administration Diazepam 5 mg 11/11/19 21:00 11/14/19 10:07 Valium PO 5 mg BID AHSAN Administration Enoxaparin Sodium 40 mg 11/12/19 09:00 11/14/19 10:07 Lovenox SC 40 mg 0900 AHSAN Administration Famotidine 20 mg 11/11/19 21:00 11/14/19 10:06 Pepcid PO 20 mg BID AHSAN Administration Folic Acid 1 mg 11/12/19 09:00 11/14/19 10:07 Folvite PO 1 mg DAILY AHSAN Administration Gabapentin 300 mg 11/11/19 21:00 11/13/19 20:09 Neurontin PO 300 mg HS AHSAN Administration Ciprofloxacin/Dextrose 400 mg/ 200 mls @ 200 mls/hr 11/11/19 21:00 11/14/19 10:07 Device IVPB 200 mls Q12HR AHSAN Administration Lactated Ringer's 1,000 mls @ 100 mls/hr 11/11/19 12:30 11/14/19 03:30 Lactated Ringer's IV 1,000 mls .Q10H AHSAN Administration Metronidazole 500 mg/ Device 100 mls @ 100 mls/hr 11/11/19 22:00 11/14/19 04: 59 IVPB 100 mls Q8HR AHSAN Administration Iron/Minerals/Multivitamins 1 tab 11/12/19 09:00 11/14/19 10:07 Theragran M PO 1 tab DAILY AHSAN Administration Lisinopril 20 mg 11/12/19 09:00 11/14/19 10:06 Zestril PO 20 mg DAILY AHSAN Administration Morphine Sulfate 2 mg 11/11/19 12:30 11/13/19 20:07 Morphine SLOW IVP 2 mg Q4H PRN Administration Chest Pain/BP Elevations Ondansetron HCl 4 mg 11/11/19 12:30 11/12/19 14:08 Zofran IVP 4 mg Q6H PRN Administration Nausea/Vomiting - Exam Neck: no JVD Heart: RRR, no murmur Respiratory: CTAB Gastrointestinal: soft, normal bowel sounds Gastrointestinal - other findings: minimal lower abd tendernesss Extremities: no edema Hosp A/P (1) Diverticulitis large intestine Code(s): K57.32 - DVTRCLI OF LG INT W/O PERFORATION OR ABSCESS W/O BLEEDING Status: Acute Qualifiers: Diverticulitis bleeding: without bleeding Diverticulitis complication: with perforation and without abscess Qualified Code(s): K57.20 - Diverticulitis of large intestine with perforation and abscess without bleeding (2) Anxiety and depression Code(s): F41.9 - ANXIETY DISORDER, UNSPECIFIED; F32.9 - MAJOR DEPRESSIVE DISORDER, SINGLE EPISODE, UNSPECIFIED Status: Chronic (3) Hypertension Code(s): I10 - ESSENTIAL (PRIMARY) HYPERTENSION Status: Chronic (4) Seizure disorder Code(s): G40.909 - EPILEPSY, UNSP, NOT INTRACTABLE, WITHOUT STATUS EPILEPTICUS Status: Chronic - Plan advance diet cont antibx potential AM DC
--- NOTE | 2019-11-14 18:47 | PDOC.GSPN ---
Surgery Progress Note: Subj - Subjective Narrative: Seen on AM rounds. Feels a little better today but still weak. Tolerating diet and passing flatus and had another BM this AM. Abdomen is only minimally tender in RLQ and patient is afebrile. Continue medical management. Surgery Progress Note: Obj - Vital signs Vital signs: Vital Signs - Most Recent Temp Pulse Resp BP Pulse Ox 98.9 F 77 16 117/75 93 L 11/14/19 16:32 11/14/19 16:32 11/14/19 16:32 11/14/19 16:32 11/14/19 16:32 Surgery Progress Note: Results - Labs Result Diagrams: 11/12/19 07:40 11/13/19 06:46 Surgery Progress Note: A/P - Problem (1) Diverticulitis large intestine Current Visit: Yes Code(s): K57.32 - DVTRCLI OF LG INT W/O PERFORATION OR ABSCESS W/O BLEEDING Status: Acute Qualifiers: Diverticulitis bleeding: without bleeding Diverticulitis complication: with perforation and without abscess Qualified Code(s): K57.20 - Diverticulitis of large intestine with perforation and abscess without bleeding
[2019-11-14] MEDS: Gabapentin 300 MG CAP PO SCH (20:25)
[2019-11-15] MEDS: metroNIDAZOLE 500 MG in Premix Bag 1 BAG IVPB SCH ×2 (06:11→14:01)
[2019-11-15] MEDS: Lactated Ringer's 1,000 ML IV SCH (07:23)
[2019-11-15 07:55] VITALS: TEMP 97.5
[2019-11-15] MEDS: Enoxaparin Sodium 40 MG/0.4 ML SYRINGE SC SCH (08:06)
[2019-11-15] MEDS: Folic Acid 1 MG TAB PO SCH (08:06)
[2019-11-15] MEDS: Lisinopril 20 MG TAB PO SCH (08:06)
[2019-11-15] MEDS: Famotidine 20 MG TAB PO SCH (08:07)
[2019-11-15] MEDS: Cyanocobalamin (Vitamin B-12) 1,000 MCG TAB PO SCH (08:07)
[2019-11-15] MEDS: carBAMazepine 200 MG TAB PO SCH (08:07)
[2019-11-15] MEDS: Multivitamin W/ Minerals 1 TAB PO SCH (08:07)
[2019-11-15] MEDS: Diazepam 5 MG TAB PO SCH (08:07)
[2019-11-15 08:09] VITALS: BP 129/83
--- NOTE | 2019-11-15 15:26 | DIS ---
DATE OF ADMISSION: 11/11/2019 DATE OF DISCHARGE: 11/15/2019 PRIMARY CARE PROVIDER: Tony Sun MD DISPOSITION: Discharged home. FINAL DIAGNOSES: Acute diverticulitis of the colon, hypertension, seizure disorder, and chronic back pain. DISCHARGE MEDICATIONS: 1. Cipro 500 mg p.o. b.i.d. for 7 days. 2. Flagyl 500 mg p.o. b.i.d. for 7 days. 3. Diazepam 5 mg p.o. t.i.d. p.r.n. 4. Lisinopril 20 mg a day. 5. Gabapentin 300 mg p.o. t.i.d., Pepcid 20 mg twice a day. 6. Tegretol 400 mg p.o. b.i.d. 7. Tramadol 50 mg p.o. q.4 hours p.r.n. pain. ALLERGIES: ACETAMINOPHEN. CODE STATUS: Full. DIET: Heart healthy. PENDING AT TIME OF DISCHARGE: Nothing. HOSPITAL COURSE: The patient was admitted to the [facility] after transfer from [facility]. He had acute abdominal pain, was found on CT scan to have acute sigmoid diverticulitis. His chemistries were normal except for a minimally low sodium 134. White count was 8.7, platelet count 145,000, and hemoglobin 12.2. He was seen in consultation by Dr. Kizzy Vasquez, General Surgery. He was treated with fluids, IV antibiotics. Cultures were negative. He improved steadily during his hospital stay. He has been started on oral diet. His abdominal exam is nontender. His vital signs are stable. He is eating and having bowel movement. Discussed discharge with him, he states he feels great. Prescriptions have been written. He has been asked to follow up with Dr. Sun in 3 days. Job ID: [id number]
== END 2019-11-15 16:22 | disposition home or self-care (01) | DRG 392 ==
LOC: ERS 10:45 → ERHOLD 12:02 → T4-A 14:41
PROVIDERS: ADMIT Internal Medicine; ATTEND Internal Medicine
DX: K57.32 Diverticulitis of large intestine without perforation or abscess without bleeding (principal); I10 Essential (primary) hypertension; G40.909 Epilepsy, unspecified, not intractable, without status epilepticus; F41.9 Anxiety disorder, unspecified; F32.9 Major depressive disorder, single episode, unspecified; G89.29 Other chronic pain; Z90.49 Acquired absence of other specified parts of digestive tract; Z87.891 Personal history of nicotine dependence
CPT/HCPCS: 36415; 80048; 80069; 85025; 96365; J0744; J1650; J2270; J2405

== ENCOUNTER 2024-08-24 10:01 | Outpatient (CLI) | payer MEDICARE, MEDICAID | END 2024-08-24 10:02 | disposition home or self-care (01) | LOC: SCSRAD 10:01 | PROVIDERS: ATTEND Family Medicine | DX: Z01.818 Encounter for other preprocedural examination (principal) | CPT/HCPCS: 36415; 71046; 80053; 80061; 84439; 84443; 85025; 85610 ==

== ENCOUNTER 2025-07-12 09:25 | Emergency (ER) | payer MEDICARE, MEDICAID ==
[2025-07-12] MEDS ORDERED: Ondansetron PF 4 MG/2 ML Vial ONE (09:48)
[2025-07-12 10:18] LABS: #Basophils 0.04 10x3/uL (0.0-0.2); #Eosinophils 0.24 10x3/uL (0.0-0.7); #Monocytes 0.50 10x3/uL (0.11-0.59); #Neutrophils 3.89 10x3/uL (1.40-6.50); %Basophils 0.6 % (0.0-1.0); %Eosinophils 3.9 % (0.0-10.0); %Lymphocytes 24.0 % (21.0-51.0); %Monocytes 8.1 % (0.0-10.0); %Neutrophils 63.1 % (42.0-75.0); Hematocrit 43.9 % (42.0-52.0); Hemoglobin 14.8 g/dL (14.0-18.0); Mean Corpuscular Hemoglobin 31.0 pg (27.0-31.0); Mean Corpuscular Volume 91.8 fL (78.0-98.0); Platelet Count 181 10x3/uL (130-400); Red Blood Cell (RBC) Count 4.78 mill/uL (4.70-6.10); White Blood Cell (WBC) Count 6.17 10x3/uL (4.8-10.8)
[2025-07-12 10:19] LABS: Cocaine Metabolite Screen Negative (Negative); THC/Cannabinoid Screen Negative (Negative); Tricyclic Screen Negative (Negative)
[2025-07-12 10:43] LABS: Acetaminophen Less than 10 mcg/mL (Less than 10); Salicylate Less than 8.0 mg/dL (Less than 8.0)
[2025-07-12 10:45] LABS: ALT (SGPT) 17 U/L (Less than 45); AST (SGOT) 15 U/L (11-34); Albumin 4.2 g/dL (3.1-4.5); Alkaline Phosphatase 91 U/L (40-110); Anion Gap 10 mmol/L (10-20); BUN (Urea Nitrogen) 12 mg/dL (8.4-25.7); Bilirubin, Total 0.4 mg/dL (0.3-1.2); CK (CPK) 50 U/L (30-200); Calc. Creatinine Clearance 0 mL/min (70-130); Calcium 9.2 mg/dL (7.8-10.44); Carbon Dioxide 26 mmol/L (23-31); Chloride 104 mmol/L (98-107); Globulin 3.5 g/dL (2.4-3.5); Glucose 103 mg/dL (80-115); Lipase 15 U/L (8-78); Magnesium 2.3 mg/dL (1.6-2.6); Potassium 4.7 mmol/L (3.5-5.1); Sodium 135 mmol/L (136-145)
[2025-07-12] MEDS ORDERED: Iopamidol 370 76% 100 ML VIAL ONE (15:23)
== END 2025-07-12 14:30 | disposition home or self-care (01) ==
LOC: ERS 09:25
DX: R53.1 Weakness (principal); R53.81 Other malaise; S33.5XXD Sprain of ligaments of lumbar spine, subsequent encounter; N28.1 Cyst of kidney, acquired; K91.5 Postcholecystectomy syndrome; I10 Essential (primary) hypertension; W18.30XD Fall on same level, unspecified, subsequent encounter; Z79.899 Other long term (current) drug therapy
CPT/HCPCS: 70450; 71045; 74177; 80306; 80307 ×2; 82550; 83690; 83735; 93005; 94760; 96374; 96375; 99285; J2270; J2405; Q9967; 36415; 80053; 84443; 85025